=== PATIENT | male | born 1955 | race Caucasian/White ===

== ENCOUNTER 2020-08-26 12:54 | Inpatient (IN) | payer MEDICARE, MEDICAID ==
[~2020-08-26] VITALS: Ht 167.6 cm; Wt 69.0 kg
[2020-08-26] MEDS ORDERED: AMLO-258 PO (14:00)
[2020-08-26] MEDS ORDERED: LOPE-202 PO (14:00)
[2020-08-26] MEDS ORDERED: PHOSLOC PO (14:00)
[2020-08-26] MEDS ORDERED: HYDR-2924 PO (14:00)
[2020-08-26] MEDS ORDERED: GABA-1181 PO (14:00)
[2020-08-26] MEDS ORDERED: PREG75 PO (14:00)
[2020-08-26] MEDS ORDERED: CARV3 PO (14:00)
[2020-08-26] MEDS ORDERED: LISI-662 PO (14:00)
[2020-08-26] MEDS ORDERED: CLOP-31 PO (14:00)
[2020-08-26] MEDS ORDERED: INSULIN REGULAR, HUMAN 100 UNITS/ML IVP ONE ×2 (14:15→16:15)
[2020-08-26 14:28] LABS: BASOPHILS % (AUTO) 0.8 % (0.0-2.0); EOSINOPHILS % (AUTO) 0.1 % (1.0-6.0); HEMATOCRIT 35.7 % (41-53); HEMOGLOBIN 10.5 g/dL (13.5-17.5); LYMPHOCYTES # (AUTO) 0.2 K/uL (1.0-4.8); LYMPHOCYTES % (AUTO) 2.7 % (22.0-44.0); MEAN CORPUSCULAR HEMOGLOBIN 31.3 pg (26.0-34.0); MEAN CORPUSCULAR HGB CONC 29.4 G/dL (31.0-37.0); MEAN CORPUSCULAR VOLUME 106 fL (80-100); MONOCYTES # (AUTO) 0.5 K/uL (0.1-1.0); MONOCYTES % (AUTO) 6.9 % (2.0-9.0); NEUTROPHILS # (AUTO) 6.6 K/uL (1.8-7.7); PLATELET COUNT (AUTO) 142 K/uL (150-450); RED BLOOD CELL COUNT(AUTO) 3.36 MIL/uL (4.50-5.90); RED CELL DISTRIBUTION WIDTH 16.7 % (11.5-14.5)
[2020-08-26 14:30] LABS: NEUTROPHILS % (AUTO) 89.5 % (40.0-70.0)
[2020-08-26 14:45] LABS: ALANINE AMINOTRANSFERASE 17 U/L (12-78); ALBUMIN 3.4 g/dL (3.4-5.0); ALKALINE PHOSPHATASE 87 U/L (46-116); ASPARTATE AMINOTRANSFERASE 13 U/L (15-37); BILIRUBIN,TOTAL 0.7 mg/dL (0.1-1.0); CALCIUM, TOTAL 8.2 mg/dL (8.8-10.5); CHLORIDE 89 mmol/L (98-107); CREATININE 9.01 mg/dL (0.60-1.30); GLOMERULAR FILTR. RATE CALC 6 mL/min (>60); LIPASE 102 U/L (73-393); SODIUM SERUM 128 mmol/L (136-145); TOTAL PROTEIN, SERUM 6.8 g/dL (6.4-8.2); UREA NITROGEN, BLOOD 75 mg/dL (7-18)
[2020-08-26 14:54] LABS: ANION GAP 29 mmol/L (8-16); CARBON DIOXIDE 10 mmol/L (22-29)
[2020-08-26 15:06] LABS: GLUCOSE,RANDOM 1006 mg/dL (70-110); POTASSIUM 6.5 mmol/L (3.5-5.1)
[2020-08-26] MEDS ORDERED: ONDANSETRON HCL 4 MG/2 ML VIAL IVP ONE (15:15)
[2020-08-26 15:53] LABS: ABG A-A DIFF O2 35.2 mmHg (10-20.0); ABG BASE EXCESS -23.4 mmol/L (-2.0-3.0); ABG CARBOXYHEMOGLOBIN 1.7 % (0.0-1.5); ABG METHEMOGLOBIN 0.2 % (0.0-1.5); ABG OXYGEN CONTENT 13.8 mL/dL (15.0-23.0); ABG OXYGEN SATURATION 92.6 % (95.0-98.0); ABG OXYHEMOGLOBIN 90.8 % (94.0-100.0); ABG PCO2 28 mmHg (35-45); ABG TOTAL HEMOGLOBIN 10.7 G/dL (12.0-18.0); SOURCE, BLOOD GAS ARTERIAL; TEMPERATURE, FAHRENHEIT, BG 98.7 FAHREN (96.0-98.6)
[2020-08-26 15:54] LABS: ABG PH 7.035 (7.35-7.450)
[2020-08-26 15:55] LABS: ABG HCO3 8.3 mmol/L (22.0-26.0); O2 DEVICE,BLOOD GAS ROOM AIR (ROOM AIR); SITE, BLOOD GAS RT RADIAL
[2020-08-26] MEDS ORDERED: SODIUM BICARBONATE [ADULT] 8.4% 50 MEQ/50 ML SYRINGE IVP ONE (16:00)
[2020-08-26] MEDS ORDERED: ALBUTEROL SULFATE 2.5 MG/0.5 ML NEB SOLUTION NEB ONE (16:00)
[2020-08-26] MEDS ORDERED: CALCIUM GLUCONATE 100 MG/ML 10 ML IVP ONE (16:00)
[2020-08-26] MEDS ORDERED: 0.9% SODIUM CHLORIDE 10 ML SYRINGE IVP PRN ×2 (16:15→17:00)
[2020-08-26] MEDS ORDERED: ACETAMINOPHEN 325 MG TABLET PO PRN ×2 (16:15→17:00)
[2020-08-26] MEDS ORDERED: DEXTROSE 50%-WATER 25 GM/50 ML SYRINGE IVP PRN ×2 (16:15→19:15)
[2020-08-26] MEDS ORDERED: ONDANSETRON HCL 4 MG/2 ML VIAL IVP PRN (16:15)
[2020-08-26 16:55] LABS: COVID AG,FIA SOURCE NASOPHARYNGEAL
[2020-08-26] MEDS ORDERED: BISACODYL 10 MG RECTAL RECTAL SUPPOSITORY PR PRN (17:00)
[2020-08-26] MEDS ORDERED: HydrALAZINE HCL 20 MG/ML VIAL IVP PRN (17:00)
[2020-08-26] MEDS ORDERED: DOCUSATE SODIUM 100 MG CAPSULE PO PRN (17:00)
[2020-08-26] MEDS ORDERED: ALBUTEROL SULFATE 2.5 MG/0.5 ML NEB SOLUTION NEB PRN (17:00)
[2020-08-26] MEDS ORDERED: IPRATROPIUM BROMIDE 0.5 MG/2.5 ML NEB SOLUTION NEB PRN (17:00)
[2020-08-26 17:03] LABS: B-TYPE NATRIURETIC PEPTIDE 1990 pg/mL (0-100)
[2020-08-26] MEDS: INSULIN REGULAR, HUMAN 100 UNITS in SODIUM CHLORIDE 0.9% 99 ML IV PRN ×2 (17:08)
[2020-08-26 17:13] LABS: CREATINE KINASE, TOTAL ONLY 89 U/L (39-308)
[2020-08-26 17:20] VITALS: BP 159/64
[2020-08-26 17:26] LABS: PHOSPHORUS 10.3 mg/dL (2.5-4.9)
[2020-08-26 17:28] LABS: SALICYLATE 4.8 mg/dL (2.8-20.0)
[2020-08-26 17:35] LABS: ACETAMINOPHEN < 2 mcg/mL (10-30)
[2020-08-26 17:46] LABS: GLUCOSE,POINT OF CARE > 600 MG/DL (70-110)
[2020-08-26 18:07] LABS: GLUCOSE,POINT OF CARE > 600 MG/DL (70-110)
[2020-08-26 18:28] LABS: ANION GAP 24 mmol/L (8-16); CALCIUM, TOTAL 8.4 mg/dL (8.8-10.5); CARBON DIOXIDE 15 mmol/L (22-29); CHLORIDE 92 mmol/L (98-107); CREATININE 9.21 mg/dL (0.60-1.30); GLOMERULAR FILTR. RATE CALC 6 mL/min (>60); POTASSIUM 5.1 mmol/L (3.5-5.1); SODIUM SERUM 131 mmol/L (136-145); UREA NITROGEN, BLOOD 80 mg/dL (7-18)
[2020-08-26 18:32] LABS: ACETAMINOPHEN < 2 mcg/mL (10-30); SALICYLATE 4.7 mg/dL (2.8-20.0)
[2020-08-26 18:44] LABS: GLUCOSE,RANDOM 943 mg/dL (70-110)
[2020-08-26] MEDS: INSULIN REGULAR, HUMAN 100 UNITS/ML IVP PRN ×3 (19:27→23:04)
[2020-08-26 20:00] VITALS: BP 141/55
[2020-08-26] MEDS: PANTOPRAZOLE SODIUM 40 MG DR TABLET PO SCH (20:04)
[2020-08-26] MEDS: HEPARIN SODIUM,PORCINE 5,000 UNITS/ML VIAL SQ SCH (20:04)
[2020-08-26] MEDS: IPRATROPIUM BROMIDE 0.5 MG/2.5 ML NEB SOLUTION NEB SCH (20:31)
[2020-08-26] MEDS: ALBUTEROL SULFATE 2.5 MG/0.5 ML NEB SOLUTION NEB SCH (20:31)
[2020-08-26 21:10] LABS: GLUCOSE,POINT OF CARE > 600 MG/DL (70-110)
[2020-08-26 21:10] LABS: GLUCOSE,POINT OF CARE > 600 MG/DL (70-110)
[2020-08-26 21:11] LABS: GLUCOSE,POINT OF CARE > 600 MG/DL (70-110)
[2020-08-26 21:37] LABS: CALCIUM, TOTAL 8.1 mg/dL (8.8-10.5); CREATININE 9.7 mg/dL (0.60-1.30); MAGNESIUM 2.5 mg/dL (1.80-2.40)
[2020-08-26 21:48] LABS: GLUCOSE,POINT OF CARE > 600 MG/DL (70-110)
[2020-08-26 23:03] LABS: GLUCOSE,POINT OF CARE 585 MG/DL (70-110)
[2020-08-26 23:19] LABS: GLUCOSE,POINT OF CARE 550 MG/DL (70-110)
[2020-08-27] VITALS (7 sets, daily range): BP systolic 102–132; BP diastolic 43–59
[2020-08-27] MEDS: INSULIN REGULAR, HUMAN 100 UNITS/ML IVP PRN ×4 (00:09→03:07)
[2020-08-27 01:14] LABS: GLUCOSE,POINT OF CARE 478 MG/DL (70-110)
[2020-08-27 01:46] LABS: CALCIUM, TOTAL 8.3 mg/dL (8.8-10.5); CREATININE 9.75 mg/dL (0.60-1.30); MAGNESIUM 2.4 mg/dL (1.80-2.40); PHOSPHORUS 4.5 mg/dL (2.5-4.9); POTASSIUM 3.3 mmol/L (3.5-5.1)
[2020-08-27] MEDS: IPRATROPIUM BROMIDE 0.5 MG/2.5 ML NEB SOLUTION NEB SCH ×4 (02:04→20:00)
[2020-08-27] MEDS: ALBUTEROL SULFATE 2.5 MG/0.5 ML NEB SOLUTION NEB SCH ×4 (02:04→20:01)
[2020-08-27 02:11] LABS: GLUCOSE,POINT OF CARE 439 MG/DL (70-110)
[2020-08-27] MEDS: INSULIN REGULAR, HUMAN 100 UNITS in SODIUM CHLORIDE 0.9% 99 ML IV PRN ×2 (02:11)
[2020-08-27 04:14] LABS: GLUCOSE,POINT OF CARE 391 MG/DL (70-110)
[2020-08-27 04:14] LABS: GLUCOSE,POINT OF CARE 295 MG/DL (70-110)
[2020-08-27 04:29] LABS: POTASSIUM 3.5 mmol/L (3.5-5.1)
[2020-08-27 04:32] LABS: BASOPHILS % (AUTO) 0.7 % (0.0-2.0); EOSINOPHILS % (AUTO) 0.6 % (1.0-6.0); HEMATOCRIT 31.3 % (41-53); HEMOGLOBIN 10.6 g/dL (13.5-17.5); LYMPHOCYTES # (AUTO) 0.9 K/uL (1.0-4.8); LYMPHOCYTES % (AUTO) 7.8 % (22.0-44.0); MEAN CORPUSCULAR HEMOGLOBIN 30.8 pg (26.0-34.0); MEAN CORPUSCULAR HGB CONC 33.7 G/dL (31.0-37.0); MEAN CORPUSCULAR VOLUME 91 fL (80-100); MONOCYTES # (AUTO) 1.4 K/uL (0.1-1.0); MONOCYTES % (AUTO) 11.9 % (2.0-9.0); NEUTROPHILS # (AUTO) 9.3 K/uL (1.8-7.7); PLATELET COUNT (AUTO) 172 K/uL (150-450); RED BLOOD CELL COUNT(AUTO) 3.42 MIL/uL (4.50-5.90); RED CELL DISTRIBUTION WIDTH 14.7 % (11.5-14.5)
[2020-08-27 04:38] LABS: HEMOGLOBIN A1C 7.6 % (3.8-5.6)
[2020-08-27 04:50] LABS: ALBUMIN 2.9 g/dL (3.4-5.0); BILIRUBIN,TOTAL 0.4 mg/dL (0.1-1.0); CALCIUM, TOTAL 8.1 mg/dL (8.8-10.5); CHOL/HDL RATIO 5.1 (4.2-7.3); CREATININE 9.97 mg/dL (0.60-1.30); FREE T4 (FREE THYROXINE) 0.99 ng/dL (0.76-1.46); MAGNESIUM 2.3 mg/dL (1.80-2.40); PHOSPHORUS 4.5 mg/dL (2.5-4.9); THYROID STIMULATING HORMONE 0.58 uIU/mL (0.36-3.74); TOTAL PROTEIN, SERUM 5.7 g/dL (6.4-8.2)
[2020-08-27 05:35] LABS: GLUCOSE,POINT OF CARE 165 MG/DL (70-110)
[2020-08-27 05:35] LABS: GLUCOSE,POINT OF CARE 218 MG/DL (70-110)
[2020-08-27 06:52] LABS: GLUCOSE,POINT OF CARE 121 MG/DL (70-110)
[2020-08-27] MEDS ORDERED: POTASSIUM CHLORIDE 20 MEQ ER TABLET PO ONE (07:00)
[2020-08-27 07:57] LABS: GLUCOSE,POINT OF CARE 75 MG/DL (70-110)
[2020-08-27] MEDS: CLOPIDOGREL BISULFATE 75 MG TABLET PO SCH (08:18)
[2020-08-27] MEDS: GABAPENTIN 300 MG CAPSULE PO SCH (08:18)
[2020-08-27] MEDS: HEPARIN SODIUM,PORCINE 5,000 UNITS/ML VIAL SQ SCH ×2 (08:18→20:18)
[2020-08-27] MEDS: PANTOPRAZOLE SODIUM 40 MG DR TABLET PO SCH (08:18)
[2020-08-27 09:30] LABS: GLUCOSE,POINT OF CARE 45 MG/DL (70-110)
[2020-08-27 09:30] LABS: GLUCOSE,POINT OF CARE 124 MG/DL (70-110)
[2020-08-27 11:42] LABS: GLUCOSE,POINT OF CARE 178 MG/DL (70-110)
[2020-08-27 11:42] LABS: GLUCOSE,POINT OF CARE 155 MG/DL (70-110)
[2020-08-27 11:59] LABS: CALCIUM, TOTAL 8.2 mg/dL (8.8-10.5); CREATININE 5.68 mg/dL (0.60-1.30); PHOSPHORUS 3.2 mg/dL (2.5-4.9); POTASSIUM 4.1 mmol/L (3.5-5.1)
[2020-08-27] MEDS ORDERED: *CLINICAL-CEFEPIME DOSING CLINICAL ONE (13:00)
[2020-08-27] MEDS ORDERED: SODIUM CHLORIDE 0.9% 250 ML IV ONE (13:14)
[2020-08-27] MEDS ORDERED: VANCOMYCIN HCL 1 GM/D5% WATER 200 ML IV ONE (13:15)
[2020-08-27] MEDS ORDERED: CEFEPIME HCL 1 GM in DEXTROSE 5%-WATER 50 ML IV ONE (13:15)
[2020-08-27] MEDS ORDERED: VANCOMYCIN HCL 1 GM/D5% WATER 200 ML IV PRN (13:45)
[2020-08-27] MEDS: INSULIN LISPRO 100 UNITS/ML SQ PRN ×2 (14:08→17:16)
[2020-08-27 14:19] LABS: GLUCOSE,POINT OF CARE 236 MG/DL (70-110)
[2020-08-27 18:22] LABS: GLUCOSE,POINT OF CARE 236 MG/DL (70-110)
[2020-08-27] MEDS: HYDROCODONE/ACETAMINOPHEN 5-325 MG TABLET PO PRN (20:18)
[2020-08-27 20:50] LABS: CALCIUM, TOTAL 7.9 mg/dL (8.8-10.5); CREATININE 5.99 mg/dL (0.60-1.30); MAGNESIUM 2.2 mg/dL (1.80-2.40); PHOSPHORUS 3.2 mg/dL (2.5-4.9); POTASSIUM 4.7 mmol/L (3.5-5.1)
[2020-08-28] VITALS (9 sets, daily range): BP systolic 105–151; BP diastolic 50–64
[2020-08-28] MEDS: IPRATROPIUM BROMIDE 0.5 MG/2.5 ML NEB SOLUTION NEB SCH ×4 (02:00→20:05)
[2020-08-28] MEDS: ALBUTEROL SULFATE 2.5 MG/0.5 ML NEB SOLUTION NEB SCH ×4 (02:00→20:06)
[2020-08-28 05:13] LABS: GLUCOSE,POINT OF CARE 101 MG/DL (70-110)
[2020-08-28] MEDS: INSULIN LISPRO 100 UNITS/ML SQ PRN (05:22)
[2020-08-28 05:32] LABS: BASOPHILS % (AUTO) 0.6 % (0.0-2.0); EOSINOPHILS % (AUTO) 2.3 % (1.0-6.0); HEMATOCRIT 33.3 % (41-53); HEMOGLOBIN 10.8 g/dL (13.5-17.5); LYMPHOCYTES # (AUTO) 0.5 K/uL (1.0-4.8); LYMPHOCYTES % (AUTO) 4.9 % (22.0-44.0); MEAN CORPUSCULAR HEMOGLOBIN 30.9 pg (26.0-34.0); MEAN CORPUSCULAR HGB CONC 32.5 G/dL (31.0-37.0); MEAN CORPUSCULAR VOLUME 95 fL (80-100); MONOCYTES # (AUTO) 0.8 K/uL (0.1-1.0); NEUTROPHILS # (AUTO) 7.9 K/uL (1.8-7.7); NEUTROPHILS % (AUTO) 84.2 % (40.0-70.0); PLATELET COUNT (AUTO) 124 K/uL (150-450); RED CELL DISTRIBUTION WIDTH 15.5 % (11.5-14.5)
[2020-08-28 05:32] LABS: GLUCOSE,POINT OF CARE 365 MG/DL (70-110)
[2020-08-28] MEDS ORDERED: SODIUM CHLORIDE 0.9% 250 ML IV ONE (05:48)
[2020-08-28 05:53] LABS: ALBUMIN 2.8 g/dL (3.4-5.0); BILIRUBIN,TOTAL 0.6 mg/dL (0.1-1.0); CALCIUM, TOTAL 7.7 mg/dL (8.8-10.5); CREATININE 6.83 mg/dL (0.60-1.30); POTASSIUM 5.6 mmol/L (3.5-5.1); TOTAL PROTEIN, SERUM 5.8 g/dL (6.4-8.2); VANCOMYCIN,RANDOM 12.6 mcg/mL (25.0-50.0)
[2020-08-28] MEDS: HYDROCODONE/ACETAMINOPHEN 5-325 MG TABLET PO PRN ×2 (06:02→20:31)
[2020-08-28] MEDS ORDERED: INSULIN REGULAR, HUMAN 100 UNITS in SODIUM CHLORIDE 0.9% 99 ML IV PRN ×2 (08:12)
[2020-08-28] MEDS ORDERED: DEXTROSE 50%-WATER 25 GM/50 ML SYRINGE IVP PRN (08:15)
[2020-08-28] MEDS: HEPARIN SODIUM,PORCINE 5,000 UNITS/ML VIAL SQ SCH ×2 (08:25→20:52)
[2020-08-28] MEDS: GABAPENTIN 300 MG CAPSULE PO SCH (08:25)
[2020-08-28] MEDS: CLOPIDOGREL BISULFATE 75 MG TABLET PO SCH (08:26)
[2020-08-28] MEDS: PANTOPRAZOLE SODIUM 40 MG DR TABLET PO SCH (08:26)
[2020-08-28 09:19] LABS: GLUCOSE,POINT OF CARE 300 MG/DL (70-110)
[2020-08-28] MEDS ORDERED: VANCOMYCIN HCL 1 GM/D5% WATER 200 ML IV ONE (12:00)
[2020-08-28 13:27] LABS: GLUCOSE,POINT OF CARE 188 MG/DL (70-110)
[2020-08-28 13:27] LABS: GLUCOSE,POINT OF CARE 139 MG/DL (70-110)
[2020-08-28 13:27] LABS: GLUCOSE,POINT OF CARE 244 MG/DL (70-110)
[2020-08-28] MEDS: DEXTROSE 50%-WATER 25 GM/50 ML SYRINGE IVP PRN ×4 (14:03→21:05)
[2020-08-28 14:57] LABS: GLUCOSE,POINT OF CARE 57 MG/DL (70-110)
[2020-08-28 15:09] LABS: ALBUMIN 2.8 g/dL (3.4-5.0); BILIRUBIN,TOTAL 0.4 mg/dL (0.1-1.0); CALCIUM, TOTAL 7.3 mg/dL (8.8-10.5); CREATININE 7.44 mg/dL (0.60-1.30); MAGNESIUM 2.3 mg/dL (1.80-2.40); PHOSPHORUS 4.1 mg/dL (2.5-4.9); POTASSIUM 4.5 mmol/L (3.5-5.1); TOTAL PROTEIN, SERUM 5.7 g/dL (6.4-8.2)
[2020-08-28] MEDS ORDERED: DEXTROSE 5%-0.9% SODIUM CHL 1,000 ML IV ONE (16:30)
[2020-08-28] MEDS: CEFEPIME HCL 0.5 GM in DEXTROSE 5%-WATER 50 ML IV SCH (16:51)
[2020-08-28 17:28] LABS: GLUCOSE,POINT OF CARE 94 MG/DL (70-110)
[2020-08-28 18:12] LABS: GLUCOSE,POINT OF CARE 92 MG/DL (70-110)
[2020-08-28 18:12] LABS: GLUCOSE,POINT OF CARE 49 MG/DL (70-110)
[2020-08-28 18:13] LABS: GLUCOSE,POINT OF CARE 100 MG/DL (70-110)
[2020-08-28 18:13] LABS: GLUCOSE,POINT OF CARE 63 MG/DL (70-110)
[2020-08-28 18:13] LABS: GLUCOSE,POINT OF CARE 134 MG/DL (70-110)
[2020-08-28 22:49] LABS: GLUCOSE,POINT OF CARE 52 MG/DL (70-110)
[2020-08-29] VITALS: BP 128/63
[2020-08-29] MEDS: ALBUTEROL SULFATE 2.5 MG/0.5 ML NEB SOLUTION NEB SCH ×4 (02:00→20:00)
[2020-08-29] MEDS: IPRATROPIUM BROMIDE 0.5 MG/2.5 ML NEB SOLUTION NEB SCH ×4 (02:00→20:00)
[2020-08-29 04:00] VITALS: BP 151/64
[2020-08-29 05:44] LABS: ALBUMIN 2.6 g/dL (3.4-5.0); BILIRUBIN,TOTAL 0.5 mg/dL (0.1-1.0); CALCIUM, TOTAL 7.3 mg/dL (8.8-10.5); CREATININE 7.81 mg/dL (0.60-1.30); MAGNESIUM 2.2 mg/dL (1.80-2.40); PHOSPHORUS 5.2 mg/dL (2.5-4.9); POTASSIUM 4.7 mmol/L (3.5-5.1); TOTAL PROTEIN, SERUM 5.4 g/dL (6.4-8.2)
[2020-08-29 06:28] LABS: GLUCOSE,POINT OF CARE 42 MG/DL (70-110)
[2020-08-29 06:28] LABS: GLUCOSE,POINT OF CARE 176 MG/DL (70-110)
[2020-08-29 06:28] LABS: GLUCOSE,POINT OF CARE 142 MG/DL (70-110)
[2020-08-29 06:28] LABS: GLUCOSE,POINT OF CARE 105 MG/DL (70-110)
[2020-08-29 06:28] LABS: GLUCOSE,POINT OF CARE 158 MG/DL (70-110)
[2020-08-29 06:28] LABS: GLUCOSE,POINT OF CARE 87 MG/DL (70-110)
[2020-08-29 06:28] LABS: GLUCOSE,POINT OF CARE 79 MG/DL (70-110)
[2020-08-29 06:28] LABS: GLUCOSE,POINT OF CARE 117 MG/DL (70-110)
[2020-08-29 06:28] LABS: GLUCOSE,POINT OF CARE 77 MG/DL (70-110)
[2020-08-29 06:28] LABS: GLUCOSE,POINT OF CARE 165 MG/DL (70-110)
[2020-08-29 06:28] LABS: GLUCOSE,POINT OF CARE 50 MG/DL (70-110)
[2020-08-29 06:28] LABS: GLUCOSE,POINT OF CARE 153 MG/DL (70-110)
[2020-08-29 08:00] VITALS: BP 149/66
[2020-08-29] MEDS: INSULIN GLARGINE,HUM.REC.ANLOG 100 UNITS/ML SQ SCH (08:11)
[2020-08-29] MEDS: INSULIN LISPRO 100 UNITS/ML SQ PRN (08:12)
[2020-08-29] MEDS: PANTOPRAZOLE SODIUM 40 MG DR TABLET PO SCH (08:25)
[2020-08-29] MEDS: HEPARIN SODIUM,PORCINE 5,000 UNITS/ML VIAL SQ SCH ×2 (08:25→23:01)
[2020-08-29] MEDS: GABAPENTIN 300 MG CAPSULE PO SCH (08:25)
[2020-08-29] MEDS: CLOPIDOGREL BISULFATE 75 MG TABLET PO SCH (08:25)
[2020-08-29] MEDS: HYDROCODONE/ACETAMINOPHEN 5-325 MG TABLET PO PRN ×4 (08:34→23:00)
[2020-08-29] MEDS ORDERED: EPOETIN ALFA 10,000 UNITS/ML 2 ML VIAL SQ SCH (09:00)
[2020-08-29 10:34] LABS: GLUCOSE,POINT OF CARE 173 MG/DL (70-110)
[2020-08-29 10:34] LABS: GLUCOSE,POINT OF CARE 195 MG/DL (70-110)
[2020-08-29 11:33] VITALS: BP 154/69
[2020-08-29 11:45] LABS: GLUCOMETER DEV NAME(LOC) 5S.1; GLUCOSE,POINT OF CARE 132 MG/DL (70-110)
[2020-08-29] MEDS: ONDANSETRON HCL 4 MG/2 ML VIAL IVP PRN (13:03)
[2020-08-29 15:12] VITALS: BP 145/68
[2020-08-29] MEDS ORDERED: SODIUM CHLORIDE 0.9% 2,000 ML ONE (16:30)
[2020-08-29] MEDS ORDERED: INSLAN SQ (16:36)
[2020-08-29] MEDS ORDERED: SODIUM CHLORIDE 0.9% 0 ML ONE (17:05)
[2020-08-29] MEDS: DEXTROSE 50%-WATER 25 GM/50 ML SYRINGE IVP PRN (17:30)
[2020-08-29 18:22] LABS: GLUCOSE,POINT OF CARE 235 MG/DL (70-110)
[2020-08-29] MEDS ORDERED: SODIUM CHLORIDE 0.9% 1,000 ML ONE (22:01)
[2020-08-29 22:54] VITALS: BP 191/79
[2020-08-29] MEDS: CEFEPIME HCL 0.5 GM in DEXTROSE 5%-WATER 50 ML IV SCH (23:01)
[2020-08-29] MEDS ORDERED: SODIUM CHLORIDE 0.9% 100 ML ONE (23:07)
[2020-08-29 23:51] LABS: GLUCOMETER DEV NAME(LOC) 5S.1; GLUCOSE,POINT OF CARE 46 MG/DL (70-110)
[2020-08-29 23:51] LABS: GLUCOMETER DEV NAME(LOC) 5S.1; GLUCOSE,POINT OF CARE 88 MG/DL (70-110)
[2020-08-29 23:51] LABS: GLUCOMETER DEV NAME(LOC) 5S.1; GLUCOSE,POINT OF CARE 35 MG/DL (70-110)
[2020-08-29 23:51] LABS: GLUCOMETER DEV NAME(LOC) 5S.1; GLUCOSE,POINT OF CARE 129 MG/DL (70-110)
[2020-08-30] VITALS: BP 150/71
[2020-08-30] MEDS: IPRATROPIUM BROMIDE 0.5 MG/2.5 ML NEB SOLUTION NEB SCH ×2 (02:00→10:19)
[2020-08-30] MEDS: ALBUTEROL SULFATE 2.5 MG/0.5 ML NEB SOLUTION NEB SCH ×2 (02:00→10:19)
[2020-08-30 04:51] VITALS: BP 140/64
[2020-08-30] MEDS: DEXTROSE 50%-WATER 25 GM/50 ML SYRINGE IVP PRN (05:25)
[2020-08-30] MEDS: HYDROCODONE/ACETAMINOPHEN 5-325 MG TABLET PO PRN (05:50)
[2020-08-30 06:24] LABS: GLUCOMETER DEV NAME(LOC) 5S.1; GLUCOSE,POINT OF CARE 34 MG/DL (70-110)
[2020-08-30 06:24] LABS: GLUCOMETER DEV NAME(LOC) 5S.1; GLUCOSE,POINT OF CARE 144 MG/DL (70-110)
[2020-08-30 07:15] VITALS: BP 163/67
[2020-08-30] MEDS: ONDANSETRON HCL 4 MG/2 ML VIAL IVP PRN (07:44)
[2020-08-30] MEDS: INSULIN GLARGINE,HUM.REC.ANLOG 100 UNITS/ML SQ SCH (07:49)
[2020-08-30] MEDS: GABAPENTIN 300 MG CAPSULE PO SCH (09:00)
[2020-08-30] MEDS: HEPARIN SODIUM,PORCINE 5,000 UNITS/ML VIAL SQ SCH (09:00)
[2020-08-30] MEDS: PANTOPRAZOLE SODIUM 40 MG DR TABLET PO SCH (09:00)
[2020-08-30] MEDS: CLOPIDOGREL BISULFATE 75 MG TABLET PO SCH (09:00)
[2020-08-30 10:07] LABS: EOSINOPHILS % (AUTO) 8.2 % (1.0-6.0); HEMATOCRIT 29.6 % (41-53); HEMOGLOBIN 9.9 g/dL (13.5-17.5); LYMPHOCYTES # (AUTO) 0.3 K/uL (1.0-4.8); LYMPHOCYTES % (AUTO) 7.2 % (22.0-44.0); MEAN CORPUSCULAR HGB CONC 33.5 G/dL (31.0-37.0); MEAN CORPUSCULAR VOLUME 93 fL (80-100); MONOCYTES # (AUTO) 0.4 K/uL (0.1-1.0); MONOCYTES % (AUTO) 9.3 % (2.0-9.0); NEUTROPHILS % (AUTO) 74.3 % (40.0-70.0); PLATELET COUNT (AUTO) 110 K/uL (150-450); RED CELL DISTRIBUTION WIDTH 14.7 % (11.5-14.5)
[2020-08-30 10:14] LABS: CALCIUM, TOTAL 7.7 mg/dL (8.8-10.5); CREATININE 4.85 mg/dL (0.60-1.30); POTASSIUM 4.3 mmol/L (3.5-5.1)
[2020-08-30 11:09] VITALS: BP 168/80
[2020-08-30 16:02] LABS: GLUCOMETER DEV NAME(LOC) 5S.1; GLUCOSE,POINT OF CARE 165 MG/DL (70-110)
[2020-08-30 16:02] LABS: GLUCOMETER DEV NAME(LOC) 5S.1; GLUCOSE,POINT OF CARE 136 MG/DL (70-110)
== END 2020-08-30 11:20 | disposition left against medical advice (07) | DRG 637 ==
LOC: EMS 12:57 → ICU 16:25 → UNDOADMIN 16:25 → ICU 16:51 → 5S 08-29 11:00
PROVIDERS: ADMIT Internal Medicine; ATTEND Internal Medicine
DX: E11.10 Type 2 diabetes mellitus with ketoacidosis without coma (principal); N18.6 End stage renal disease; R65.10 Systemic inflammatory response syndrome (SIRS) of non-infectious origin without acute organ dysfunction; E87.1 Hypo-osmolality and hyponatremia; E87.2 Acidosis; R78.81 Bacteremia; D63.1 Anemia in chronic kidney disease; E11.22 Type 2 diabetes mellitus with diabetic chronic kidney disease; E87.5 Hyperkalemia; E83.39 Other disorders of phosphorus metabolism; E11.40 Type 2 diabetes mellitus with diabetic neuropathy, unspecified; I50.9 Heart failure, unspecified; F17.210 Nicotine dependence, cigarettes, uncomplicated; J44.9 Chronic obstructive pulmonary disease, unspecified; Z53.29 Procedure and treatment not carried out because of patient's decision for other reasons; Z85.118 Personal history of other malignant neoplasm of bronchus and lung; Z95.5 Presence of coronary angioplasty implant and graft; Z99.2 Dependence on renal dialysis; Z91.19 Patient's noncompliance with other medical treatment and regimen
CPT/HCPCS: 36600; 82805; 83036; 83605; 83735; 84100; 84145; 84439; 84443; 87040; 87081; 87205; 87340; 87426; 93005; 93306; 94640; 97161; 99291; G0378; G0480; G0481; J0610; J0692; J0885; J1644; J1815; J2405; J3370; J3490; J7030; J7042; J7050; J7060; 36415-L1; 36415-TC; 71045-TC; 80061-TC; 80202-TC; J7613